=== PATIENT | female | born 1985 | race American Indian/Alaskan Native ===

== ENCOUNTER 2020-11-08 10:01 | Outpatient (CLI) | payer OTHER | END 2020-11-08 11:08 | disposition home or self-care (01) | LOC: NST 10:01 | PROVIDERS: ATTEND Obstetrics & Gynecology Maternal & Fetal Medicine | DX: Z34.82 Encounter for supervision of other normal pregnancy, second trimester (principal) ==

== ENCOUNTER 2020-11-15 10:28 | Outpatient (CLI) | payer OTHER | END 2020-11-15 11:26 | disposition home or self-care (01) | LOC: NST 10:28 | PROVIDERS: ATTEND Obstetrics & Gynecology Maternal & Fetal Medicine | DX: O30.002 Twin pregnancy, unspecified number of placenta and unspecified number of amniotic sacs, second trimester (principal) ==

== ENCOUNTER 2020-11-20 10:48 | Outpatient (CLI) | payer OTHER | END 2020-11-20 14:41 | disposition home or self-care (01) | LOC: NST 10:48 | PROVIDERS: ATTEND Obstetrics & Gynecology Maternal & Fetal Medicine | DX: O30.002 Twin pregnancy, unspecified number of placenta and unspecified number of amniotic sacs, second trimester (principal) ==

== ENCOUNTER 2020-11-27 16:02 | Inpatient (IN) | payer OTHER ==
[~2020-11-27] VITALS: Ht 165.1 cm; Wt 78.0 kg
[2020-11-27] MEDS ORDERED: PRENATAL TABLE1 EAC1 PO (18:36)
[2020-11-27] MEDS ORDERED: PROCARDIA PO (18:37)
[2020-11-28] MEDS ORDERED: NIFEDIPINE ER30 M1 (10:20)
== END 2020-12-04 10:10 | disposition home or self-care (01) | DRG 833 ==
LOC: OB/GYN 16:02 → LDR 16:02 → OB/GYN 11-29 11:59
PROVIDERS: ADMIT Obstetrics & Gynecology; ATTEND Obstetrics & Gynecology
PROC: 4A1HXFZ Monitoring of Products of Conception, Cardiac Rhythm, External Approach (ICD-10-PCS; principal; 2020-11-27)
PROC: BY4GZZZ Ultrasonography of Third Trimester, Multiple Gestation (ICD-10-PCS; 2020-11-29)
DX: O41.03X1 Oligohydramnios, third trimester, fetus 1 (principal); O30.043 Twin pregnancy, dichorionic/diamniotic, third trimester; O36.5931 Maternal care for other known or suspected poor fetal growth, third trimester, fetus 1; Z3A.28 28 weeks gestation of pregnancy; Z20.822 Contact with and (suspected) exposure to COVID-19

== ENCOUNTER 2020-12-06 08:26 | Outpatient (CLI) | payer OTHER ==
[~2020-12-06 08:26] MED LIST: NIFEDIPINE ER30 M1; PRENATAL TABLE1 EAC1 PO; PROCARDIA PO
== END 2020-12-06 09:02 | disposition home or self-care (01) ==
LOC: NST 08:26
PROVIDERS: ATTEND Obstetrics & Gynecology Maternal & Fetal Medicine
DX: O30.003 Twin pregnancy, unspecified number of placenta and unspecified number of amniotic sacs, third trimester (principal)

== ENCOUNTER 2020-12-09 09:31 | Outpatient (CLI) | payer OTHER | END 2020-12-09 10:11 | disposition home or self-care (01) | LOC: NST 09:31 | PROVIDERS: ATTEND Obstetrics & Gynecology Maternal & Fetal Medicine | DX: O30.003 Twin pregnancy, unspecified number of placenta and unspecified number of amniotic sacs, third trimester (principal) ==

== ENCOUNTER 2020-12-11 08:22 | Outpatient (CLI) | payer OTHER | END 2020-12-11 09:02 | disposition home or self-care (01) | LOC: NST 08:22 | PROVIDERS: ATTEND Obstetrics & Gynecology Maternal & Fetal Medicine | DX: O30.003 Twin pregnancy, unspecified number of placenta and unspecified number of amniotic sacs, third trimester (principal) ==

== ENCOUNTER 2020-12-13 08:45 | Outpatient (CLI) | payer OTHER | END 2020-12-13 09:29 | disposition home or self-care (01) | LOC: NST 08:45 | PROVIDERS: ATTEND Obstetrics & Gynecology Maternal & Fetal Medicine | DX: O30.003 Twin pregnancy, unspecified number of placenta and unspecified number of amniotic sacs, third trimester (principal) ==

== ENCOUNTER 2020-12-16 09:15 | Outpatient (CLI) | payer OTHER | END 2020-12-16 09:47 | disposition home or self-care (01) | LOC: NST 09:15 | PROVIDERS: ATTEND Obstetrics & Gynecology Maternal & Fetal Medicine | DX: O30.003 Twin pregnancy, unspecified number of placenta and unspecified number of amniotic sacs, third trimester (principal) ==

== ENCOUNTER 2020-12-18 08:49 | Outpatient (CLI) | payer OTHER | END 2020-12-18 10:00 | disposition home or self-care (01) | LOC: NST 08:49 | PROVIDERS: ATTEND Obstetrics & Gynecology Maternal & Fetal Medicine | DX: O30.003 Twin pregnancy, unspecified number of placenta and unspecified number of amniotic sacs, third trimester (principal) ==

== ENCOUNTER 2020-12-20 08:41 | Outpatient (CLI) | payer OTHER | END 2020-12-20 09:51 | disposition home or self-care (01) | LOC: NST 08:41 | PROVIDERS: ATTEND Obstetrics & Gynecology Maternal & Fetal Medicine | DX: O30.003 Twin pregnancy, unspecified number of placenta and unspecified number of amniotic sacs, third trimester (principal) ==

== ENCOUNTER 2020-12-21 10:07 | Outpatient (CLI) | payer OTHER | END 2020-12-21 11:28 | disposition home or self-care (01) | LOC: NST 10:07 | PROVIDERS: ATTEND Obstetrics & Gynecology Maternal & Fetal Medicine | DX: O30.003 Twin pregnancy, unspecified number of placenta and unspecified number of amniotic sacs, third trimester (principal) ==

== ENCOUNTER 2020-12-23 08:41 | Inpatient (IN) | payer OTHER ==
[~2020-12-23] VITALS: Ht 165.1 cm; Wt 1.4 kg
[2020-12-23] MEDS ORDERED: LABETALOL HCL100 MG PO (10:18)
[2020-12-23] MEDS ORDERED: ATABEX DHA 200200 MG (11:18)
== END 2020-12-30 13:50 | disposition home or self-care (01) | DRG 788 ==
LOC: NST 08:41 → OB/GYN 09:49 → SURG-SUITE 09:49 → LDR 09:49 → OB/GYN 12-25 10:05 → SURG-SUITE 12-27 23:29
PROVIDERS: ADMIT Obstetrics & Gynecology Maternal & Fetal Medicine; ATTEND Obstetrics & Gynecology Maternal & Fetal Medicine
PROC: 4A1HXFZ Monitoring of Products of Conception, Cardiac Rhythm, External Approach (ICD-10-PCS; 2020-12-23)
PROC: 10D00Z1 Extraction of Products of Conception, Low, Open Approach (ICD-10-PCS; principal; 2020-12-27 10:00)
DX: O14.23 HELLP syndrome (HELLP), third trimester (principal); O36.8331 Maternal care for abnormalities of the fetal heart rate or rhythm, third trimester, fetus 1; O36.8332 Maternal care for abnormalities of the fetal heart rate or rhythm, third trimester, fetus 2; O30.043 Twin pregnancy, dichorionic/diamniotic, third trimester; O90.81 Anemia of the puerperium; D64.9 Anemia, unspecified; Z3A.31 31 weeks gestation of pregnancy; Z37.2 Twins, both liveborn; Z20.822 Contact with and (suspected) exposure to COVID-19